=== PATIENT | female | born 1955 | race Caucasian/White ===

== ENCOUNTER 2016-04-30 18:35 | Emergency (ER) | payer OTHER ==
[2016-04-30 19:15] VITALS: BP 133/77
[2016-04-30] MEDS ORDERED: ATIVAN PO ONE (20:25)
--- NOTE | 2016-04-30 20:31 | PROVIDER DOCUMENTATION ---
HPI-General Adult <Debra Ziegler - Last Filed: 04/30/16 21:07> - General Source: patient - History of Present Illness -Gen Adult Nature of Presenting Problems: 60 y/o WF c/o chest tightness, anxiety, NUNEZ x 1 day. Pt states hx of anxiety, but out of xanax. States NUNEZ is frontal in nature. Denies V/D/C, fever/chills. Reports nausea. States sister is sick and neice this morning. States will not have xanax again until seen by her provider on 07 May 2016. Pt tearful. States chest tightness is central and anterior. Denies radiation. <Maye Kay - Last Filed: 05/02/16 17:18> - General Chief Complaint: Anxiety Stated Complaint: ANXIETY, NUNEZ Time Seen by Provider: 04/30/16 20:22 Allergies/Adverse Reactions: Patient Allergies Allergy/AdvReac Type Severity Reaction Status Date / Time morphine Allergy Intermediate lowers BP Verified 04/30/16 22:09 ketorolac tromethamine * Allergy Mild itch Verified 04/30/16 22:09 [From Toradol] promethazine HCl * Allergy Mild ITCHING Verified 04/30/16 22:10 [From Phenergan] tramadol HCl * [From Ultram] Allergy Mild NAUSEA Verified 04/30/16 22:09 Home Medications: Home Medication List Medication Instructions Recorded Confirmed Last Taken Type Alprazolam [Xanax] 1 mg PO BID 01/15/13 01/15/13 01/14/13 21:00 History Clopidogrel [Plavix] 75 mg PO DAILY 01/15/13 01/15/13 01/15/13 08:00 History Hum Insulin NPH/Reg Insulin Hm 30 unit SQ QAM 01/15/13 01/15/13 Unknown History [Novolin 70-30 100 Unit/ml Vial] Hydrocodone/Acetaminophen [Vicodin 1 each PO PRN PRN #1 tablet 01/15/13 Unknown Rx 5-300 mg Tablet] Insulin Aspart [Novolog] 20 unit SQ QHS 01/15/13 01/15/13 Unknown History LISINOpril [Prinivil] 10 mg PO DAILY 01/15/13 01/15/13 Unknown History Levothyroxine [Synthroid] 125 microgm PO DAILY 01/15/13 01/15/13 01/15/13 06:00 History Oxcarbazepine 300 mg PO 01/15/13 01/15/13 Unknown History Oxycodone [Roxicodone Liquid] 10 mg PO TID 01/15/13 01/15/13 Unknown History Hydroxyzine Pamoate [Vistaril] 25 mg PO TID PRN PRN #30 capsule 04/30/16 Unknown Rx Review of Systems - Adult - REVIEW OF SYSTEMS - ADULT Constitutional: reports: no symptoms reported. denies: chills, fever Eyes: reports: no symptoms reported. denies: blurred vision, double vision Ears, Nose, Mouth & Throat: reports: no symptoms reported. denies: ear pain, nose pain Cardiovascular: reports: see HPI, chest pain. denies: palpitations Respiratory: reports: no symptoms reported. denies: dyspnea on exertion, shortness of breath Gastrointestinal: reports: see HPI, nausea. denies: abdominal pain, constipation, diarrhea, vomiting Genitourinary: reports: no symptoms reported. denies: dysuria, frequency Musculoskeletal: reports: no symptoms reported. denies: joint pain, joint swelling Integumentary: reports: no symptoms reported. denies: nail changes, rash Neurological: reports: no symptoms reported. denies: numbness, paresthesia Psychiatric: reports: see HPI, anxiety Endocrine: reports: no symptoms reported. denies: cold intolerance, heat intolerance Hematologic/Lymphatic: reports: no symptoms reported. denies: easy bruising, prolonged bleeding Allergic/Immunologic: reports: no symptoms reported All Other Systems: Reviewed and Negative <Maye Kay. - Last Filed: 05/02/16 17:18> Past History - Adult - PAST MEDICAL HISTORY-ADULT Review of Records: reports: Nursing Assessment Review, Medications Reviewed - SOCIAL HISTORY Smoking: denies <Maye Kay A. - Last Filed: 05/02/16 17:18> Physical Exam-General - PHYSICAL EXAM-ADULT Initial Vital Signs Reviewed: Yes - CONSTITUTIONAL General Appearance: alert, anxious - EYES Eyes: pink conjunctivae - HEAD, EARS, NOSE, MOUTH & THROAT HENMT: moist mucous membranes - NECK Neck: normal inspection - RESPIRATORY Respiratory: chest non-tender, lungs clear, normal breath sounds. negative: crackles, rales, rhonchi, stridor, wheezing - CARDIOVASCULAR Cardiovascular: regular rate, rhythm. negative: bradycardia, tachycardia - GASTROINTESTINAL (ABDOMEN) Abdominal Exam: normal bowel sounds, non tender, soft. negative: distended, guarding, rigid, rebound - MUSCULOSKELETAL Back Exam: normal inspection Extremity: normal gait - SKIN Integumentary: normal color, normal turgor, warm/dry - NEUROLOGIC Neurologic: negative: aphasia, facial droop, focal weakness - PSYCHIATRIC Psych/Mental Status: normal mood/affect, normal thought content, normal thought process, oriented x 3 <Maye Kay - Last Filed: 05/02/16 17:18> Progress - EKG 1 Time of EKG reading by physician:: 20:31 EKG Read and Signed by:: Dakota Gu EKG Interpretation (*Must complete 3 of following elements*): Abnormal Rate: 112 Rhythm: Sinus Tachy with occassional premature ventricular complexes QRS: RBB Comments: Abnormal ECG <KarlieDebra - Last Filed: 04/30/16 21:07> - PLAN OF CARE/RESULTS Progress/Plan/Lab Results: Laboratory Tests 04/30/16 04/30/16 04/30/16 20:40 20:40 20:40 WBC 8.52 RBC 4.44 Hgb 13.5 Hct 40.8 MCV 91.9 MCH 30.4 MCHC 33.1 RDW Std Deviation 14.4 Plt Count 230 MPV 11.5 H Immature Gran % (Auto) 0.5 Neut % (Auto) 52.6 Lymph % (Auto) 34.3 Jay % (Auto) 10.1 H Eos % (Auto) 2.1 Baso % (Auto) 0.4 Immature Gran # (Auto) 0.04 Neut # (Auto) 4.49 Lymph # (Auto) 2.92 Jay # (Auto) 0.86 H Eos # (Auto) 0.18 Baso # (Auto) 0.03 PT INR PTT (Actin FS) Sodium 139 Potassium 4.6 Chloride 101 Carbon Dioxide 24 L Anion Gap 14 BUN 11 Creatinine 0.7 Estimated GFR/1.73 m2 > 60 BUN/Creatinine Ratio 16 Glucose 191 H Calculated Osmolality 282 Calcium 9.4 Magnesium 1.4 L Total Bilirubin 0.24 AST 22 ALT 26 Alkaline Phosphatase 149 H Creatine Kinase 54 Troponin T Xhb-L-Hhdwdedtsjw Pept 177 Total Protein 7.5 Albumin 3.5 Globulin 4.0 Albumin/Globulin Ratio 0.9 04/30/16 04/30/16 20:40 20:40 WBC RBC Hgb Hct MCV MCH MCHC RDW Std Deviation Plt Count MPV Immature Gran % (Auto) Neut % (Auto) Lymph % (Auto) Jay % (Auto) Eos % (Auto) Baso % (Auto) Immature Gran # (Auto) Neut # (Auto) Lymph # (Auto) Jay # (Auto) Eos # (Auto) Baso # (Auto) PT 10.8 INR 1.03 PTT (Actin FS) 28.7 Sodium Potassium Chloride Carbon Dioxide Anion Gap BUN Creatinine Estimated GFR/1.73 m2 BUN/Creatinine Ratio Glucose Calculated Osmolality Calcium Magnesium Total Bilirubin AST ALT Alkaline Phosphatase Creatine Kinase Troponin T < 0.010 Emo-Z-Pwoxwjxmyfx Pept Total Protein Albumin Globulin Albumin/Globulin Ratio Orders Category Date Time Status CHEST-2 VIEWS [RAD] Stat Exams 04/30/16 20:22 Completed CBC WITH ELECTRONIC DIFF [HEME] Stat Lab 04/30/16 20:40 Completed CK PROFILE [SP CHEM] Stat Lab 04/30/16 20:40 Completed COMPREHENSIVE METABOLIC PANEL [CHEM] Stat Lab 04/30/16 20:40 Completed MAGNESIUM [CHEM] Stat Lab 04/30/16 20:40 Completed PRO B-NATRIURETIC PEPTIDE Stat Lab 04/30/16 20:40 Completed PROTIME WITH INR [COAG] Stat Lab 04/30/16 20:40 Completed PTT [COAG] Stat Lab 04/30/16 20:40 Completed TROPONIN T Stat Lab 04/30/16 20:40 Completed Butalbital/APAP/Caffeine [Fioricet] Med 04/30/16 22:12 Discontinued 1 each PO NOW ONE Lorazepam [Ativan] Med 04/30/16 20:25 Discontinued 2 mg PO NOW ONE Nalbuphine [Nubain] Med 04/30/16 22:18 Discontinued 10 mg IM NOW ONE Ondansetron Odt [Zofran Odt] Med 04/30/16 22:12 Discontinued 4 mg PO NOW ONE EKG [EKG] Stat Ther 04/30/16 20:22 Draft Vital Signs Temp Pulse Resp BP Pulse Ox 04/30/16 19:13 98.5 F 104 H 20 133/77 96 morphine Allergy (Intermediate, Verified 04/30/16 22:09) lowers BP ketorolac tromethamine * [From Toradol] Allergy (Mild, Verified 04/30/16 22:09) itch promethazine HCl * [From Phenergan] Allergy (Mild, Verified 04/30/16 22:10) ITCHING tramadol HCl * [From Ultram] Allergy (Mild, Verified 04/30/16 22:09) NAUSEA Alprazolam [Xanax] 1 mg PO BID 01/15/13 Clopidogrel [Plavix] 75 mg PO DAILY 01/15/13 Hum Insulin NPH/Reg Insulin Hm [Novolin 70-30 100 Unit/ml Vial] 30 unit SQ QAM 01/15/13 Hydrocodone/Acetaminophen [Vicodin 5-300 mg Tablet] 1 each PO PRN PRN #1 tablet 01/15/13 Insulin Aspart [Novolog] 20 unit SQ QHS 01/15/13 LISINOpril [Prinivil] 10 mg PO DAILY 01/15/13 Levothyroxine [Synthroid] 125 microgm PO DAILY 01/15/13 Oxcarbazepine 300 mg PO 01/15/13 Oxycodone [Roxicodone Liquid] 10 mg PO TID 01/15/13 Hydroxyzine Pamoate [Vistaril] 25 mg PO TID PRN PRN #30 capsule 04/30/16 ANXIETY DISORDER, UNSPECIFIED (04/30/16) CHEST PAIN, UNSPECIFIED (04/30/16) NAUSEA (04/30/16) ABNORMAL ELECTROCARDIOGRAM [ECG] [EKG] (04/30/16) [employer]IAN (CURRENT) USE OF ANTITHROMBOTICS/ANTIPLATELETS (04/30/16) PENITENTIARY (CURRENT) USE OF INSULIN (04/30/16) OTHER PENITENTIARY (CURRENT) DRUG THERAPY (04/30/16) Laboratory 04/30/16 04/30/16 04/30/16 20:40 20:40 20:40 WBC RBC Hgb Hct MCV MCH MCHC RDW Std Deviation Plt Count MPV Immature Gran % (Auto) Neut % (Auto) Lymph % (Auto) Jay % (Auto) Eos % (Auto) Baso % (Auto) Immature Gran # (Auto) Neut # (Auto) Lymph # (Auto) Jay # (Auto) Eos # (Auto) Baso # (Auto) PT 10.8 INR 1.03 PTT (Actin FS) 28.7 Sodium Potassium Chloride Carbon Dioxide Anion Gap BUN Creatinine Estimated GFR/1.73 m2 BUN/Creatinine Ratio Glucose Calculated Osmolality Calcium Magnesium Total Bilirubin AST ALT Alkaline Phosphatase Creatine Kinase Troponin T < 0.010 Szm-N-Wikuxhgsdhv Pept 177 Total Protein Albumin Globulin Albumin/Globulin Ratio 04/30/16 04/30/16 20:40 20:40 WBC 8.52 RBC 4.44 Hgb 13.5 Hct 40.8 MCV 91.9 MCH 30.4 MCHC 33.1 RDW Std Deviation 14.4 Plt Count 230 MPV 11.5 H Immature Gran % (Auto) 0.5 Neut % (Auto) 52.6 Lymph % (Auto) 34.3 Jay % (Auto) 10.1 H Eos % (Auto) 2.1 Baso % (Auto) 0.4 Immature Gran # (Auto) 0.04 Neut # (Auto) 4.49 Lymph # (Auto) 2.92 Jay # (Auto) 0.86 H Eos # (Auto) 0.18 Baso # (Auto) 0.03 PT INR PTT (Actin FS) Sodium 139 Potassium 4.6 Chloride 101 Carbon Dioxide 24 L Anion Gap 14 BUN 11 Creatinine 0.7 Estimated GFR/1.73 m2 > 60 BUN/Creatinine Ratio 16 Glucose 191 H Calculated Osmolality 282 Calcium 9.4 Magnesium 1.4 L Total Bilirubin 0.24 AST 22 ALT 26 Alkaline Phosphatase 149 H Creatine Kinase 54 Troponin T Gok-O-Fsruxoobyet Pept Total Protein 7.5 Albumin 3.5 Globulin 4.0 Albumin/Globulin Ratio 0.[address] Gu. They agreed with discharge plan. Discussed results and follow up with patient. - XRAY 1 XRAY Study: Chest XRAY Interpretation: No PNA <Maye Kay - Last Filed: 05/02/16 17:18> Departure <Debra Ziegler - Last Filed: 04/30/16 21:07> - Departure Time of Disposition Order: 21:48 Certified Medical Emergency: Emergent <Maye Kay - Last Filed: 05/02/16 17:18> - Departure DIAGNOSIS: Anxiety Disposition: HOME 01 Condition: Stable Additional Instructions: Take medications as directed. Follow up with PCP for further management. ED Follow Up Instructions: You have been treated by a care provider in the Emergency Department. These instructions are being provided to you so you can have an understanding of how to care for yourself upon discharge. Upon discharge from the Emergency Department, you are responsible for making arrangements for follow-up care by a physician of your choice. Take all prescribed medications as directed. Return to the Emergency Department immediately for any new or worsening symptoms. You may call the Physician Referral phone number at [phone] to obtain a list of Physicians who are taking new patients. Prescriptions: Hydroxyzine Pamoate [Vistaril] 25 mg PO TID PRN PRN #30 capsule PRN Reason: Anxiety Referrals: [Primary Care Provider] - Instructions: Panic Attacks, [id number] Attestation - Physician/ EDGAR Attestation Patient care was provided by Advanced Practice Provider:: Yes Advanced Practice Provider:: Maye Kay Advanced Practice Provider documentation review:: The Mid-level provider documentation, treatment plan and medical decision making was reviewed by the physician who agrees with all treatment and medical decision making by the P. <Maye Kay - Last Filed: 05/02/16 17:18> Physician Attestation
[2016-04-30 20:56] LABS: MANUAL DIFF NEEDED? NO
[2016-04-30 21:10] LABS: BASO% 0.4 % (0.0-0.8); EOS# 0.18 X1000 (0.0-0.7); EOS% 2.1 % (0.0-10.0); HEMATOCRIT 40.8 % (37.0-47.0); HEMOGLOBIN 13.5 g/dL (12.0-16.0); IMM GRAN# 0.04 X1000 (0.0-0.04); IMM GRAN% 0.5 % (0.0-0.5); LYMPH# 2.92 X1000 (1.2-3.4); LYMPH% 34.3 % (20.5-51.1); MCH 30.4 PG (27-31); MCHC 33.1 g/dL (33-37); MCV 91.9 FL (81-99); MONO# 0.86 X1000 (0.11-0.59); MONO% 10.1 % (1.7-9.3); MPV 11.5 FL (7.4-10.4); NEUT% 52.6 % (42.2-75.2); PLT 230 X1000 (130-400); RBC 4.44 XMIL (4.2-5.4)
[2016-04-30 21:16] LABS: INR 1.03; PROTIME 10.8 Seconds (9.2-11.7); PTT 28.7 Seconds (22.0-36.0)
[2016-04-30 21:24] LABS: AGAP 14; ALBUMIN 3.5 g/dL (3.5-5.0); ALKALINE PHOSPHATASE 149 U/L (32-104); BUN 11 mg/dL (8-22); CALCIUM 9.4 mg/dL (8.8-10.2); CHLORIDE 101 mmol/L (98-107); CK PROFILE 54 U/L (24-173); COSMO 282; GOT 22 U/L (10-30); GPT 26 U/L (10-36); MAGNESIUM 1.4 mg/dL (1.5-2.7); POTASSIUM 4.6 mmol/L (3.5-5.1); SODIUM 139 mmol/L (136-145); TCO2 24 mmol/L (25-35); TOTAL BILIRUBIN 0.24 mg/dL (0.20-1.00); TOTAL PROTEIN 7.5 g/dL (6.3-8.3)
[2016-04-30] MEDS ORDERED: FIORICET PO ONE (22:12)
[2016-04-30] MEDS ORDERED: ZOFRAN ODT PO ONE (22:12)
[2016-04-30] MEDS ORDERED: NUBAIN IM ONE (22:18)
--- NOTE | 2016-05-01 05:24 | EKG Report ---
Test Performed on : 04/30/2016 8:31:51 PM Test Reason : Chest Pain Blood Pressure : / mmHG Vent. Rate : 112 BPM Atrial Rate : 112 BPM P-R Int : 136 ms QRS Dur : 116 ms QT Int : 350 ms P-R-T Axes : 079 114 060 degrees QTc Int : 477 ms Sinus tachycardia. with occasional premature ventricular complexes. Possible Left atrial enlargement Right bundle branch block Left posterior fascicular block Bifascicular block Abnormal ECG No previous ECGs available Unconfirmed Result
--- NOTE | 2016-05-01 08:18 | Diag Imaging Result Document ---
PROCEDURE NAME: CHEST-2 VIEWS - 04/30/2016 FRONTAL AND LATERAL CHEST, TWO VIEWS: FINDINGS: The lungs are well expanded. The heart is not enlarged. The vessels are not distended. No pneumonia. No pleural effusions. There is a granuloma in the left base. No free air beneath the diaphragm. IMPRESSION: No acute abnormality.
== END 2016-04-30 22:32 | disposition home or self-care (01) ==
LOC: ED 18:35
DX: F41.9 Anxiety disorder, unspecified (principal); R07.9 Chest pain, unspecified; R11.0 Nausea; R94.31 Abnormal electrocardiogram [ECG] [EKG]; Z79.899 Other long term (current) drug therapy; Z79.4 Long term (current) use of insulin; Z79.02 Long term (current) use of antithrombotics/antiplatelets
CPT/HCPCS: 36415; 71020; 80053; 82550; 83735; 83880; 84484; 85025; 85610; 85730; 93005; 96372; J2300